=== PATIENT | female | born 1975 | race Caucasian/White ===

== ENCOUNTER 2019-09-24 06:31 | Emergency (ER) | payer SELFPAY ==
[2019-09-24 07:43] LABS: Albumin 3.7 g/dL (3.4-5.0); Bilirubin Direct 0.1 mg/dL (0-0.2); Bilirubin Total 0.3 mg/dL (0.2-1.0); Magnesium 2.1 mg/dL (1.8-2.4); Potassium 3.1 mmol/L (3.5-5.1); Protein, Total 8.3 g/dL (6.4-8.2); Thyroid Stimulating Hormone 1.01 uIU/mL (0.360-3.740)
[2019-09-24] MEDS ORDERED: ONDANSETRON 4 MG (ODT) TAB ONE (07:51)
[2019-09-24] MEDS ORDERED: MECLIZINE HCL 12.5 MG TAB ONE (07:51)
[2019-09-24 08:01] LABS: Absolute Lymphocytes (CBC) 1.1 K/uL (0.7-4.9); Basophils % 0.5 % (0-1.3); Hematocrit 36.3 % (36.0-45.0); Lymphocytes % 10.3 % (15.3-44.8); MPV 9.2 fL (7.6-11.3)
[2019-09-24 08:18] LABS: Anisocytosis 1+; Blood Morphology Comment NOTED (NOT SEEN); Hypochromasia 1+; Platelet Estimate ADEQ
--- NOTE | 2019-09-24 08:33 | RAD REPORT ---
EXAM DESCRIPTION: CT - Head Brain Wo Cont - 09/24/2019 7:33 am CLINICAL HISTORY: DIZZINESS Headache, drowsiness COMPARISON: No comparisons TECHNIQUE: All CT scans are performed using dose optimization technique as appropriate and may inclu de automated exposure control or mA/KV adjustment according to patient size. FINDINGS: No intracranial hemorrhage, hydrocephalus or extra-axial fluid collection.No areas of brai n edema or evidence of midline shift. The paranasal sinuses and mastoids are clear. The calvarium is intact. IMPRESSION: No acute intracranial abnormality.
--- NOTE | 2019-09-24 08:34 | ER ---
Nurse's Notes [facility] [place] Name: Senait Garces Age: 44 yrs Sex: Female : 1975 Arrival Date: 09/24/2019 Time: 06:34 Bed 20 Private MD: Diagnosis: Other peripheral vertigo Presentation: 09/23 06:46 Chief complaint: Patient states: for the last 3 mornings she has woken up dizzy, room bb spinning symptoms lasted approx 30 minutes but today she woke up at 0400 and has been dizzy ever since, room spinning, vomited x 1. Coronavirus screen: Patient denies fever greater than 100.4F, cough, shortness of breath, or difficulty breathing. Proceed with normal triage process. Ebola Screen: No symptoms or risks identified at this time. Initial Sepsis Screen: Does the patient meet any 2 criteria? No. Patient's initial sepsis screen is negative. Does the patient have a suspected source of infection? No. Patient's initial sepsis screen is negative. Risk Assessment: Do you want to hurt yourself or someone else? Patient reports no desire to harm self or others. Onset of symptoms was September 20, 2019. 06:46 Method Of Arrival: Ambulatory bb 06:46 Acuity: KAI 3 bb 06:49 Note pt also c/o sinus pain and pressure. 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 - Social history:: Smoking status: Patient denies any tobacco usage or history of. Screenin:10 Abuse screen: Denies threats or abuse. Denies injuries from another. Nutritional sg screening: No deficits noted. Tuberculosis screening: No symptoms or risk factors identified. Never had TB. Fall Risk None identified. Assessment: 07:10 General: Appears in no apparent distress. well groomed, well developed, well nourished, sg Behavior is calm, cooperative, appropriate for age. Pain: Denies pain. Neuro: Level of Consciousness is awake, alert, obeys commands, Oriented to person, place, time, Light Adjuster are equal bilaterally Moves all extremities. Speech is normal, Facial symmetry appears normal, Reports dizziness. Cardiovascular: Patient's skin is warm and dry. Chest pain is denied. Respiratory: Airway is patent Respiratory effort is even, unlabored, Respiratory pattern is regular, symmetrical. GI: Abdomen is round non-distended, Reports vomiting. : No signs and/or symptoms were reported regarding the genitourinary system. EENT: No signs and/or symptoms were reported regarding the EENT system. Derm: Skin is pink, warm \\T\\ dry. Musculoskeletal: Circulation, motion, and sensation intact. Range of motion: intact in all extremities. 07:10 Reassessment: Report received from Juan Carlos Wallace RN. aa5 07:15 Reassessment: Pt states feeling better, pt states "I am not dizzy anymore". Pt refused aa5 medications at this time. Will wait on blood results to establish if IV is needed, pt agrees with plan of care at this time. . 07:30 Reassessment: Pt back from CT . aa5 07:43 Reassessment: Patient is alert, oriented x 3, equal unlabored respirations, skin aa5 warm/dry/pink. Pt reports mild dizziness and nausea at this time. Offered to start IV at this time and administered previous meds ordered, pt declined at this time, pt states "I do not want an IV", will check with provider for PO medications. . 08:40 Reassessment: Patient is alert, oriented x 3, equal unlabored respirations, skin aa5 warm/dry/pink. Pt states "I still feel a little dizzy". Awaiting ride for d/c home . Vital Signs: 06:46 BP 150 / 91; Pulse 66; Resp 16 S; Temp 96.3(TE); Pulse Ox 100% on R/A; Weight 127.01 kg bb (R); Height 5 ft. 3 in. (160.02 cm) (R); Pain 2/10; 07:47 Temp 97.6(O); aa5 08:40 BP 150 / 88; Pulse 68; Resp 18 S; Pulse Ox 100% on R/A; Pain 0/10; aa5 06:46 Body Mass Index 49.60 (127.01 kg, 160.02 cm) ED Course: 06:34 Patient arrived in ED. ds1 06:36 [facility] jr8 06:36 Tono Sagastume MD is Attending Physician. jr8 06:48 Triage completed. bb 06:49 Arm band placed on Patient placed in an exam room, on a stretcher, on pulse oximetry. bb 07:02 EKG done, by ED staff, reviewed by Mathew LOVELL. sg 07:10 Patient has correct armband on for positive identification. Bed in low position. Call sg light in reach. Side rails up X2. grocery clerk on. Pulse ox on. NIBP on. Warm blanket given. Head of bed elevated. 07:10 Initial lab(s) drawn, by me, sent to lab. Missed attempt(s): 20 gauge in right sg antecubital area. Bleeding controlled, band aid applied, catheter tip intact. 07:21 Attending Physician role handed off by Tono Sagastume MD ms3 07:21 Christiano Marinelli DO is Attending Physician. ms3 07:34 CT Head Brain wo Cont In Process Unspecified. EDMS 07:36 Jaylin Oviedo, RN is Primary Nurse. aa5 09:15 No provider procedures requiring assistance completed. Patient did not have IV access aa5 during this emergency room visit. Administered Medications: 07:36 Not Given (Patient Refused): Zofran (Ondansetron) 4 mg IVP once; over 2 minutes aa5 07:36 Not Given (Patient Refused): Meclizine 25 mg PO once aa5 07:36 Not Given (Patient Refused): Valium 2 mg IVP once aa5 07:50 Drug: Ondansetron (Zofran) 4 mg Route: PO; aa5 08:05 Follow up: Response: No adverse reaction aa5 08:05 Drug: Meclizine 25 mg Route: PO; aa5 08:40 Follow up: Response: No adverse reaction aa5 08:40 Drug: Potassium Chloride 40 mEq Route: PO; aa5 09:15 Follow up: Response: No adverse reaction aa5 Outcome: 08:33 Discharge ordered by . jr8 09:15 Discharged to home via wheelchair, with significant other. aa5 09:15 Condition: stable 09:15 Discharge instructions given to patient, Instructed on discharge instructions, follow up and referral plans. medication usage, Demonstrated understanding of instructions, follow-up care, medications, Prescriptions given X 2. 09:19 Patient left the ED. ph Signatures: Dispatcher [employer] EDMS Juan Carlos Wallace, RN RN Kat Hyde ds1 Myrna Kang RN RN bb Jaylin Oviedo RN RN aa5 Mathew Munoz, LILIYA LOVELL jr8 Vickie Torres RN RN Christiano Marinelli DO DO ms3 Corrections: (The following items were deleted from the chart) 07:53 07:43 Reassessment: Patient is alert, oriented x 3, equal unlabored respirations, skin aa5 warm/dry/pink. Pt reports mild dizziness and nausea at this time. . aa5
--- NOTE | 2019-09-24 08:34 | EDPHYS ---
Physician Documentation [facility] Name: Senait Garces Age: 44 yrs Sex: Female : 1975 Arrival Date: 09/24/2019 Time: 06:34 Bed 20 Private MD: ED Physician Christiano Marinelli HPI: 09/23 07:09 This 44 yrs old Female presents to ER via Ambulatory with complaints of jr8 Dizziness. 07:09 The patient presents with dizziness. Onset: The symptoms/episode began/occurred jr8 suddenly, 3 day(s) ago. Context: occurred at home, occurred while the patient was at rest, getting up from bed. Modifying factors: The symptoms are alleviated by holding head still, the symptoms are aggravated by movement of head, standing up, changing position. Associated signs and symptoms: Pertinent positives: nausea, vomiting. Severity of symptoms: At their worst the symptoms were mild in the emergency department the symptoms have improved moderately. Patient's baseline: Neuro: alert and fully oriented, Motor: no deficits, Ambulation: walks without assistance, Speech: normal. The patient has not experienced similar symptoms in the past. The patient has not recently seen a physician. Patient stated that for three days she has had dizziness when she first wake up in the morning. Stated that it will last for an hour or so and then dissipate. Today not going away. Denies recent illness or trauma . 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 - Social history:: Smoking status: Patient denies any tobacco usage or history of. ROS: 07:09 Eyes: Negative for injury, pain, redness, and discharge, ENT: Negative for injury, jr8 pain, and discharge, Neck: Negative for injury, pain, and swelling, Cardiovascular: Negative for chest pain, palpitations, and edema, Respiratory: Negative for shortness of breath, cough, wheezing, and pleuritic chest pain, Back: Negative for injury and pain, MS/Extremity: Negative for injury and deformity, Skin: Negative for injury, rash, and discoloration. 07:09 Abdomen/GI: Positive for nausea and vomiting, Negative for abdominal pain, diarrhea, constipation, abdominal cramps, abdominal distension. 07:09 Neuro: Positive for dizziness, Negative for altered mental status, gait disturbance, headache, hearing loss, loss of consciousness, numbness, seizure activity, speech changes, syncope, near syncope, tingling, tinnitus, tremor, visual changes, weakness. Exam: 07:09 Eyes: Pupils equal round and reactive to light, extra-ocular motions intact. Lids and jr8 lashes normal. Conjunctiva and sclera are non-icteric and not injected. Cornea within normal limits. Periorbital areas with no swelling, redness, or edema. ENT: Nares patent. No nasal discharge, no septal abnormalities noted. Tympanic membranes are normal and external auditory canals are clear. Oropharynx with no redness, swelling, or masses, exudates, or evidence of obstruction, uvula midline. Mucous membranes moist. Neck: Trachea midline, no thyromegaly or masses palpated, and no cervical lymphadenopathy. Supple, full range of motion without nuchal rigidity, or vertebral point tenderness. No Meningismus. Cardiovascular: Regular rate and rhythm with a normal S1 and S2. No gallops, murmurs, or rubs. Normal PMI, no JVD. No pulse deficits. Respiratory: Lungs have equal breath sounds bilaterally, clear to auscultation and percussion. No rales, rhonchi or wheezes noted. No increased work of breathing, no retractions or nasal flaring. Abdomen/GI: Soft, non-tender, with normal bowel sounds. No distension or tympany. No guarding or rebound. No evidence of tenderness throughout. Back: No spinal tenderness. No costovertebral tenderness. Full range of motion. Skin: Warm, dry with normal turgor. Normal color with no rashes, no lesions, and no evidence of cellulitis. MS/ Extremity: Pulses equal, no cyanosis. Neurovascular intact. Full, normal range of motion. Neuro: Awake and alert, GCS 15, oriented to person, place, time, and situation. Cranial nerves II-XII grossly intact. Motor strength 5/5 in all extremities. Sensory grossly intact. Cerebellar exam normal. Normal gait. 09:14 ECG was reviewed by the Attending Physician. [facility] Vital Signs: 06:46 BP 150 / 91; Pulse 66; Resp 16 S; Temp 96.3(TE); Pulse Ox 100% on R/A; Weight 127.01 kg bb (R); Height 5 ft. 3 in. (160.02 cm) (R); Pain 2/10; 07:47 Temp 97.6(O); aa5 08:40 BP 150 / 88; Pulse 68; Resp 18 S; Pulse Ox 100% on R/A; Pain 0/10; aa5 06:46 Body Mass Index 49.60 (127.01 kg, 160.02 cm) bb MDM: 06:36 Patient medically screened. 8 07:09 Data reviewed: vital signs, nurses notes, lab test result(s), EKG, radiologic studies, jr8 CT scan. Data interpreted: Pulse oximetry: on room air is 100 %. Interpretation: normal. Counseling: I had a detailed discussion with the patient and/or guardian regarding: the historical points, exam findings, and any diagnostic results supporting the discharge/admit diagnosis, lab results, radiology results, the need for outpatient follow up, a family practitioner, to return to the emergency department if symptoms worsen or persist or if there are any questions or concerns that arise at home. Response to treatment: the patient's symptoms have resolved after treatment. ED course: Patients dizziness self resolved. Will d/c home with meclizine and zofran. If worse to come back . 09/23 06:55 Order name: Basic Metabolic Panel; Complete Time: 08:04 09/23 06:55 Order name: CBC with Diff; Complete Time: 08:21 09/23 06:55 Order name: LFT's; Complete Time: 08:04 09/23 06:55 Order name: Magnesium; Complete Time: 08:04 09/23 06:56 Order name: TSH; Complete Time: 08:04 09/23 06:56 Order name: T4 Free; Complete Time: 08:04 09/23 06:55 Order name: CT Head Brain wo Cont; Complete Time: 09:01 09/23 08:18 Order name: Manual Differential; Complete Time: 08:21 EDMS 09/23 06:55 Order name: EKG; Complete Time: 06:56 09/23 06:55 Order name: Cardiac monitoring; Complete Time: 07:04 8 09/23 06:55 Order name: EKG - Nurse/Tech; Complete Time: 07:03 8 09/23 06:55 Order name: Labs collected and sent; Complete Time: 07:36 8 09/23 06:55 Order name: O2 Per Protocol; Complete Time: 07:04 8 09/23 06:55 Order name: O2 Sat Monitoring; Complete Time: 07:41 jr8 EC:14 Rate is 58 beats/min. Rhythm is regular, Sinus bradycardia. QRS [place] is Normal. [place] jr8 interval is normal at 160 msec. QRS interval is normal at 100 msec. QT interval is normal at 459 msec. No Q waves. T waves are Inverted in leads III, aVF, V3, V4. No ST changes noted. Clinical impression: NSR w/ Non-specific ST/T Changes. Interpreted by me. Reviewed by me. Administered Medications: 07:36 Not Given (Patient Refused): Zofran (Ondansetron) 4 mg IVP once; over 2 minutes aa5 07:36 Not Given (Patient Refused): Meclizine 25 mg PO once aa5 07:36 Not Given (Patient Refused): Valium 2 mg IVP once aa5 07:50 Drug: Ondansetron (Zofran) 4 mg Route: PO; aa5 08:05 Follow up: Response: No adverse reaction aa5 08:05 Drug: Meclizine 25 mg Route: PO; aa5 08:40 Follow up: Response: No adverse reaction aa5 08:40 Drug: Potassium Chloride 40 mEq Route: PO; aa5 09:15 Follow up: Response: No adverse reaction aa5 Disposition: 07:23 Co-signature as Attending Physician, Christiano Marinelli DO I agree with the assessment and ms3 plan of care. PA/SOCIAL WORK JOB TITLES's history reviewed, patient interviewed, and examined. I agree with assessment and care plan and confirm the diagnosis (es) above. Attestation: The patient's history, exam findings, diagnostics, and a summary of any interventions or procedures was reviewed in detail with Mathew LOVELL. 10:02 Co-signature as Attending PhysicianChristiano DO. ms3 Disposition: 09/24/19 08:33 Discharged to Home. Impression: Other peripheral vertigo. - Condition is Stable. - Discharge Instructions: Benign Positional Vertigo, Vertigo, Vertigo, [id number]. - Prescriptions for Meclizine 25 mg Oral Tablet - take 1 tablet by ORAL route every 8 hours As needed; 30 tablet. Zofran 4 mg Oral Tablet - take 1 tablet by ORAL route every 12 hours As needed; 20 tablet. - Medication Reconciliation Form, Thank You Letter, Antibiotic Education, Prescription Opioid Use form. - Follow up: Private Physician; When: 2 - 3 days; Reason: Recheck today's complaints, Continuance of care, Re-evaluation by your physician. - Problem is new. - Symptoms have improved. Signatures: Dispatcher [employer] EDMS Myrna Kang RN RN Jaylin Oviedo RN RN aa5 Mathew Munoz PA PA jr8 Vickie Torres RN RN Christiano Marinelli DO DO ms3 Corrections: (The following items were deleted from the chart) 08:35 08:29 Head Brain Wo Cont+CT.RAD.BRZ ordered. [facility] 09:06 06:55 IV Saline Lock ordered. [place] [id number] 09:06 06:55 Urine Test ordered. [place] [id number] 09:06 06:55 Urine Dipstick-Ancillary ordered. [facility]5 09:19 08:33 09/24/2019 08:33 Discharged to Home. Impression: Other peripheral vertigo. ph Condition is Stable. Forms are Medication Reconciliation Form, Thank You Letter, Antibiotic Education, Prescription Opioid Use. Follow up: Private Physician; When: 2 - 3 days; Reason: Recheck today's complaints, Continuance of care, Re-evaluation by your physician. Problem is new. Symptoms have improved. jr8
[2019-09-24] MEDS ORDERED: POTASSIUM CL SA 10 MEQ TAB PO ONE (08:48)
[2019-09-24 09:42] VITALS: BP 150/91; O2SAT 100
[2019-09-24 09:43] VITALS: TEMP 97.6
--- NOTE | 2019-09-24 15:29 | EKG ---
Test Date: 2019-09-24 Test Time: 07:00:10 Police Detention Attendant: SWG MEASUREMENT RESULTS: Intervals: Rate: 58 DE: 160 QRSD: 100 QT: 468 QTc: 459 [place]: P: 43 DE: 160 QRS: 18 T: -8 INTERPRETIVE STATEMENTS: Sinus bradycardia Cannot rule out Anterior infarct, age undetermined Abnormal ECG No previous ECG available for comparison Electronically Signed On 09-24-19 15:28:02 CDT by Ravi Linares
== END 2019-09-24 09:19 | disposition home or self-care (01) ==
LOC: ER 06:31
DX: H81.399 Other peripheral vertigo, unspecified ear (principal); I10 Essential (primary) hypertension
CPT/HCPCS: 36415; 70450; 80048; 80076; 83735; 84439; 84443; 85025; 93005; 99284; J8597